=== PATIENT | female | born 1985 | race Hispanic/Latino ===

== ENCOUNTER 2017-07-26 13:53 | Emergency (ER) | payer MEDICAID ==
[2017-07-26 16:53] LABS: Bacteria,Urine 1+ /HPF (Negative); Bilirubin,Urine NEG (Negative); Blood,Urine SM (Negative); Ketones,Urine NEG (Negative); Leukocyte Esterase,Urine MOD (Negative); Mucus,Urine FEW /HPF; Nitrite,Urine NEG (Negative); Protein,Urine <15 mg/dL mg/dL (Negative); Urobilinogen,Urine < 2.0 mg/dL (<2.0)
[2017-07-26 17:11] LABS: Hematocrit 42.2 % (30.3-42.9); Hemoglobin 13.6 gm/dl (10.1-14.3); Mean Corpuscular HGB Conc 32 % (30-34); Mean Corpuscular Hemoglobin 30 pg (28-32); Mean Corpuscular Volume 92 fl (79-97); Platelet Count 354 K/mm3 (140-440); Red Blood Count 4.58 M/mm3 (3.65-5.03); Red Cell Distribution Width 13.7 % (13.2-15.2); White Blood Count 9.6 K/mm3 (4.5-11.0)
[2017-07-26 17:20] LABS: Anion Gap 19 mmol/L; BUN/Creatinine Ratio 10; Blood Urea Nitrogen 4 mg/dL (7-17); Calcium 9.9 mg/dL (8.4-10.2); Carbon Dioxide 25 mmol/L (22-30); Chloride 100.8 mmol/L (98-107); Creatine Kinase 48 units/L (30-135); Glucose 96 mg/dL (65-100); Potassium 4.9 mmol/L (3.6-5.0); Sodium 140 mmol/L (137-145)
--- NOTE | 2017-07-26 17:39 | Emergency Department Report ---
ED General Adult HPI - General Chief complaint: Pain General Stated complaint: MOUTH PAIN Time Seen by Provider: 07/26/17 16:52 Source: patient, family, EMS Mode of arrival: Stretcher Limitations: No Limitations - History of Present Illness Initial comments: states she took methamphetamines about 2 days ago, then began to have pain and tightening in her jaw. She is able to verbalize, but says that she has to keep her mouth open and can't close it. However, when asked to close her mouth she is able to do it. She also reports having a history of seizures. She appears to have some facial drooping bilaterally as well. Onset/Timin -: days(s) Location: mouth Radiation: non-radiation Severity scale (0 -10): 10 Quality: other (tightness) Consistency: constant Improves with: none Worsens with: none Associated Symptoms: denies other symptoms Treatments Prior to Arrival: none - Related Data Home Medications Medication Instructions Recorded Confirmed Last Taken ALPRAZolam [Xanax TAB] 0.5 mg PO Q6HR 06/21/13 02/20/14 06/20/13 11:00 Sertraline [Zoloft] 50 mg PO HS 06/21/13 02/20/14 06/20/13 11:00 levETIRAcetam [Keppra TAB] 500 mg PO BID 06/21/13 02/20/14 06/21/13 10:00 Previous Rx's Medication Instructions Recorded Last Taken Type oxyCODONE /ACETAMINOPHEN [Percocet 1 tab PO Q6HR PRN #12 tablet 02/20/14 Unknown Rx 5/325 mg] Diazepam Tab [Valium] 5 mg PO BID PRN #3 tab 07/26/17 Unknown Rx Allergies Allergy/AdvReac Type Severity Reaction Status Date / Time Penicillins Allergy Anaphylaxis Verified 06/21/13 19:37 ED Review of Systems ROS: Stated complaint: MOUTH PAIN Other details as noted in HPI Constitutional: denies: chills, fever Eyes: denies: eye pain, eye discharge, vision change ENT: denies: ear pain, throat pain Respiratory: denies: cough, shortness of breath, wheezing Cardiovascular: denies: chest pain, palpitations Endocrine: no symptoms reported Gastrointestinal: denies: abdominal pain, nausea, diarrhea Genitourinary: denies: urgency, dysuria, discharge Musculoskeletal: denies: back pain, joint swelling, arthralgia Skin: denies: rash, lesions Neurological: denies: headache, weakness, paresthesias Psychiatric: denies: anxiety, depression Hematological/Lymphatic: denies: easy bleeding, easy bruising ED Past Medical Hx - Past Medical History Previous Medical History?: Yes Hx Seizures: Yes Hx Psychiatric Treatment: Yes (Depression, Anxiety) Additional medical history: menigitisis viral at age 13 - Surgical History Past Surgical History?: No - Social History Smoking Status: Current Every Day Smoker Substance Use Type: Methamphetamines - Medications Home Medications: Home Medications Medication Instructions Recorded Confirmed Last Taken Type ALPRAZolam [Xanax TAB] 0.5 mg PO Q6HR 06/21/13 02/20/14 06/20/13 11:00 History Sertraline [Zoloft] 50 mg PO HS 06/21/13 02/20/14 06/20/13 11:00 History levETIRAcetam [Keppra TAB] 500 mg PO BID 06/21/13 02/20/14 06/21/13 10:00 History oxyCODONE /ACETAMINOPHEN [Percocet 1 tab PO Q6HR PRN #12 tablet 02/20/14 Unknown Rx 5/325 mg] Diazepam Tab [Valium] 5 mg PO BID PRN #3 tab 07/26/17 Unknown Rx ED Physical Exam - General Limitations: No Limitations General appearance: alert, in no apparent distress - Head Head exam: Present: atraumatic - Eye Eye exam: Present: normal appearance, PERRL, EOMI Pupils: Present: normal accommodation - ENT ENT exam: Present: normal orophraynx, mucous membranes moist, other (passive and active movement of TMJ without any evidence of dislocation, visually it appears as if the patient is clenching her jaw while open. No tenderness to palpation) - Neck Neck exam: Present: normal inspection - Respiratory Respiratory exam: Present: normal lung sounds bilaterally - Cardiovascular Cardiovascular Exam: Present: regular rate, normal heart sounds - GI/Abdominal GI/Abdominal exam: Present: soft - Rectal Rectal exam: Present: deferred - Extremities Exam Extremities exam: Present: normal inspection - Back Exam Back exam: Present: normal inspection - Neurological Exam Neurological exam: Present: alert, CN II-XII intact - Psychiatric Psychiatric exam: Present: normal affect, normal mood - Skin Skin exam: Present: warm, dry, intact, normal color ED Course Vital Signs 07/26/17 07/26/17 07/26/17 15:41 17:00 17:02 Temperature 98.2 F Pulse Rate 110 H 93 H 89 Respiratory 20 14 13 Rate Blood Pressure 133/102 109/62 O2 Sat by Pulse 98 100 Oximetry 07/26/17 17:08 Temperature Pulse Rate Respiratory 18 Rate Blood Pressure O2 Sat by Pulse Oximetry - Reevaluation(s) Reevaluation #1: 07/26/17 18:53 Patient is markedly improved, no longer clenching her jaw, states that the valium help resolve her symptoms. I will discharge her on a few tablets of valium 5mg PO and strongly advised her to seek help for her substance use disorder. She agrees. Her is also present and expresses understanding. ED Medical Decision Making - Lab Data Result diagrams: 07/26/17 16:33 07/26/17 16:33 - Medical Decision Making She is likely suffering from muscle spasms, will go ahead and discharge home, not having any seizure like activity, she is at baseline at present. Advised to seek help for her substance use disorder. Return as needed. Critical Care Time: No Critical care attestation.: If time is entered above; I have spent that time in minutes in the direct care of this critically ill patient, excluding procedure time. ED Disposition Clinical Impression: Muscle spasm Disposition: [id number] TO HOME OR SELFCARE Is pt being admited?: No Does the pt Need Aspirin: No Condition: Good Additional Instructions: Rest, fluids, watch for worsening, new symptoms, return as needed, seek help for substance use disorder. Return as needed, call 911 if you think you are having a life threatening emergency. Prescriptions: Diazepam Tab [Valium] 5 mg PO BID PRN #3 tab PRN Reason: Muscle Spasm Referrals: PRIMARY CARE, [Primary Care Provider] - 3-5 Days
[2017-07-26] MEDS ORDERED: NACL 0.9% 1000 ML 1,000 ML IV ONE (17:40)
[2017-07-26] MEDS ORDERED: VALIUM IV ONE (17:41)
--- NOTE | 2017-07-26 18:38 | Cat Scan Report ---
FINAL REPORT PROCEDURE: CT HEAD/BRAIN WO CON TECHNIQUE: Computerized tomography of the head was performed without contrast material. HISTORY: facial drooping COMPARISON: No prior studies are available for comparison. FINDINGS: The visualized portions of the paranasal sinuses are clear. Mastoid air cells are clear. There is no calvarial fracture. There is no hydrocephalus. No acute intracranial hemorrhage or mass effect is seen. There is no evidence of acute CVA. IMPRESSION: No abnormalities are seen.
[2017-07-26 19:29] VITALS: BP 118/74
== END 2017-07-26 19:30 | disposition home or self-care (01) ==
LOC: ED 13:53
DX: M62.838 Other muscle spasm (principal); F41.9 Anxiety disorder, unspecified; F32.9 Major depressive disorder, single episode, unspecified; F17.200 Nicotine dependence, unspecified, uncomplicated; F15.10 Other stimulant abuse, uncomplicated
CPT/HCPCS: 36415; 70450; 80048; 81001; 82550; 85027; 96361; 96374; 99284; J3360; J7030